=== PATIENT | female | born 1995 | race Two or more races ===

== ENCOUNTER 2018-12-05 23:10 | Inpatient (IN) | payer BC, OTHER ==
[2018-12-05] MEDS ORDERED: Carboprost Tromethamine 250 MCG/1 ML Amp IM PRN (23:33)
[2018-12-05] MEDS ORDERED: Sodium Chloride 0.9% 10 ML Syringe FLUSH PRN (23:33)
[2018-12-05] MEDS ORDERED: Butorphanol 1 MG/ML SDV IVPUSH PRN (23:33)
[2018-12-05] MEDS ORDERED: Nalbuphine 10 MG/1 ML Vial IVPUSH PRN (23:33)
[2018-12-05] MEDS ORDERED: Lidocaine 1% 50 ML MDV INJECT PRN (23:33)
[2018-12-05] MEDS ORDERED: Ondansetron 4 MG/2 ML SDV IV PRN (23:33)
[2018-12-05] MEDS ORDERED: Misoprostol 200 MCG Tab PO PRN (23:33)
[2018-12-05] MEDS ORDERED: Sodium Chloride 0.9% 2.5 ML Syringe FLUSH PRN (23:33)
[2018-12-05] MEDS ORDERED: Tranexamic Acid 1,000 MG in Sodium Chloride 0.9% 100 ML IV PRN (23:33)
[2018-12-05] MEDS ORDERED: Water For Irrigation,Sterile 1,000 ML Container IRR PRN (23:33)
[2018-12-05] MEDS ORDERED: Sodium Chloride 0.9% 10 ML SDV IV PRN (23:33)
[2018-12-05] MEDS ORDERED: Methylergonovine 0.2 MG/1 ML Amp IM PRN (23:33)
[2018-12-05] MEDS ORDERED: Oxytocin/0.9 % Sodium Chloride 30 UNIT/500 ML BAG IV SCH (23:45)
[2018-12-06] MEDS: Lactated Ringers 1,000 ML IV SCH ×2 (03:07→04:05)
[2018-12-06] MEDS ORDERED: fentaNYL 100 MCG/2 ML SDV ONE (03:40)
[2018-12-06] MEDS ORDERED: Ropivacaine 0.2% 2 MG/ML 20 ML SDV ONE (03:40)
[2018-12-06] MEDS ORDERED: Ropivacaine HCl/PF 100 ML ONE (03:41)
[2018-12-06] MEDS ORDERED: Lidocaine HCl/EPINEPHrine 5 ML IJ ONE (03:46)
--- NOTE | 2018-12-06 04:28 | PCM.PREANE ---
Preanesthetic Assessment - Anesthesia/Transfusion/Family Hx Anesthesia History: Prior Anesthesia Without Reaction Family History of Anesthesia Reaction: No Transfusion History: No Prior Transfusion(s) - Review of Systems General: No Symptoms Pulmonary: No Symptoms Cardiovascular: No Symptoms Gastrointestinal: No Symptoms Neurological: No Symptoms Other: Reports: None (Denies any personal or family hx of bleeding or clotting problems) - Physical Assessment Height: 1.7 m Weight: 86.636 kg ASA Class: 2 Mental Status: Alert & Oriented x3 Airway Class: Mallampati = 2 Dentition: Reports: Normal Dentition ROM/Head Extension: Full - Lab Values: Laboratory Last Values WBC 11.62 K/uL (4.0-11.0) H 12/05/18 23:58 RBC 4.18 M/uL (4.30-5.90) L 12/05/18 23:58 Hgb 11.6 g/dL (12.0-16.0) L 12/05/18 23:58 Hct 34.6 % (36.0-46.0) L 12/05/18 23:58 MCV 82.8 fL (80.0-98.0) 12/05/18 23:58 MCH 27.8 pg (27.0-32.0) 12/05/18 23:58 MCHC 33.5 g/dL (31.0-37.0) 12/05/18 23:58 RDW Std Deviation 46.3 fl (28.0-62.0) 12/05/18 23:58 RDW Coeff of Teo 16 % (11.0-15.0) H 12/05/18 23:58 Plt Count 321 K/uL (150-400) 12/05/18 23:58 MPV 9.70 fL (7.40-12.00) 12/05/18 23:58 Nucleated RBC % 0.0 /100WBC 12/05/18 23:58 Nucleated RBCs # 0 K/uL 12/05/18 23:58 Blood Type A POSITIVE 12/05/18 23:58 Antibody Screen NEGATIVE 12/05/18 23:58 - Allergies Allergies/Adverse Reactions: Allergies Allergy/AdvReac Type Severity Reaction Status Date / Time No Known Allergies Allergy Verified 12/20/13 10:04 - Acknowledgements Anesthesia Type Planned: Epidural Pt an Appropriate Candidate for the Planned Anesthesia: Yes Alternatives and Risks of Anesthesia Discussed w Pt/Guardian: Yes Pt/Guardian Understands and Agrees with Anesthesia Plan: Yes PreAnesthesia Questionnaire HEENT History: Reports: None Cardiovascular History: Reports: None Respiratory History: Reports: None Gastrointestinal History: Reports: None Genitourinary History: Reports: None BARN HAND History: Reports: Musculoskeletal History: Reports: None Neurological History: Reports: None Psychiatric History: Reports: None Endocrine/Metabolic History: Reports: None Hematologic History: Reports: None Immunologic History: Reports: None Oncologic (Cancer) History: Reports: None Dermatologic History: Reports: None - Infectious Disease History Infectious Disease History: Reports: None - Past Surgical History Head Surgeries/Procedures: Reports: None Female Surgical History: Reports: LEEP - SUBSTANCE USE Smoking Status *Q: Never Smoker Second Hand Smoke Exposure: No Recreational Drug Use History: No - CURRENT (IN HOUSE) MEDS Current Meds: Current Medications Butorphanol Tartrate (Stadol) 1 mg IVPUSH Q1H PRN PRN Reason: Pain Carboprost Tromethamine (Hemabate Ds) 250 mcg IM ASDIRECTED PRN PRN Reason: Post Hemorrhage Lactated Ringer's (Ringers, Lactated) 1,000 mls @ 150 mls/hr IV ASDIRECTED SATISH Last Admin: 12/06/18 04:05 Dose: 999 mls/hr Oxytocin/Sodium Chloride (Oxytocin 30 Unit/500 Ml-Ns) 30 unit in 500 mls @ 999 mls/hr IV TITRATE SATISH Tranexamic Acid 1,000 mg/ (Sodium Chloride) 110 mls @ 660 mls/hr IV ONETIME PRN PRN Reason: Bleeding Lidocaine HCl (Xylocaine 1%) 50 ml INJECT ONETIME PRN PRN Reason: Laceration repair Methylergonovine Maleate (Methergine) 0.2 mg IM ASDIRECTED PRN PRN Reason: Post Hemorrhage Misoprostol (Cytotec) 200 mcg PO ONETIME PRN PRN Reason: Post Hemorrhage Nalbuphine HCl (Nubain) 10 mg IVPUSH Q1H PRN PRN Reason: Pain (severe 7-10) Ondansetron HCl (Zofran) 4 mg IV Q6H PRN PRN Reason: Nausea/Vomiting Sodium Chloride (Saline Flush) 10 ml FLUSH ASDIRECTED PRN PRN Reason: Keep Vein Open Sodium Chloride (Saline Flush) 2.5 ml FLUSH ASDIRECTED PRN PRN Reason: Keep Vein Open Sodium Chloride (Normal Saline) 10 ml IV ASDIRECTED PRN PRN Reason: IV Use Sterile Water (Sterile Water For Irrigation) 1,000 ml IRR ASDIRECTED PRN PRN Reason: delivery Discontinued Medications Fentanyl (Sublimaze) Confirm Administered Dose 300 mcg .ROUTE .STK-MED ONE Stop: 12/06/18 03:41 Ropivacaine (Naropin 0.2%) Confirm Administered Dose 100 mls @ as directed .ROUTE .STK-MED ONE Stop: 12/06/18 03:42 Lidocaine/Epinephrine (Lidocaine 1.5%-Epi 1:200,000) Confirm Administered Dose 5 ml IJ .STK-MED ONE Stop: 12/06/18 03:47 Ropivacaine (Naropin 0.2%) Confirm Administered Dose 20 ml .ROUTE .STK-MED ONE Stop: 12/06/18 03:41
[2018-12-06] MEDS ORDERED: Terbutaline 1 MG/ML SDV SUBCUT PRN (07:21)
[2018-12-06] MEDS ORDERED: Oxytocin/0.9 % Sodium Chloride 30 UNIT/500 ML BAG IV SCH (07:30)
[2018-12-06] MEDS ORDERED: Ibuprofen 400 MG Tab PO PRN (13:16)
[2018-12-06] MEDS ORDERED: oxyCODONE 5 MG Tab PO PRN (13:16)
[2018-12-06] MEDS ORDERED: Witch Hazel Medicated Pads 40/Jar TOP PRN (13:16)
[2018-12-06] MEDS ORDERED: Acetaminophen 500 MG Tab PO PRN ×2 (13:16)
[2018-12-06] MEDS ORDERED: Docusate Sodium 100 MG Cap PO PRN (13:16)
[2018-12-06] MEDS ORDERED: Lanolin 100% Cream 7 GM Tube TOP PRN (13:16)
[2018-12-06] MEDS ORDERED: Bisacodyl 10 MG Supp RECTAL PRN (13:16)
[2018-12-06] MEDS ORDERED: Benzocaine/Menthol 20%-0.5% Spray 78 GM Cannister TOP PRN (13:16)
--- NOTE | 2018-12-06 13:23 | PCM.OPNOTE ---
- General Post-Op/Procedure Note Date of Surgery/Procedure: 12/06/18 Operative Procedure(s): /2nd MLL repaired Findings: Vaible Male APGARs 9, 9 weight pending. Spontaneous delivery intact placenta with 3V cord Pre Op Diagnosis: 40/1 week IUP. Labor Post-Op Diagnosis: Same Anesthesia Technique: Epidural Primary Surgeon: Naya Reveles EBL in mLs: 350 Complications: none known Condition: Good Free Text/Narrative:: Dictation [id number]
--- NOTE | 2018-12-06 14:07 | OR ---
SURGEON: Naya Reveles M.D. DATE OF PROCEDURE: 12/06/2018 PREOPERATIVE DIAGNOSES: 1. A 40-1/7 weeks' intrauterine . 2. Labor. POSTOPERATIVE DIAGNOSES: 1. A 40-1/7 weeks' intrauterine . 2. Labor. PROCEDURE: Spontaneous vaginal delivery, second-degree midline laceration repaired. ANESTHESIA: Epidural. ESTIMATED BLOOD LOSS: 350 mL. COMPLICATIONS: None known. FINDINGS: Viable male. scores 9 at 1 minute and 9 at 5 minutes. Weight is pending. Spontaneous delivery, intact placenta, 3-vessel cord. DISPOSITION: to nursery, mom in LDRP. PROCEDURE DETAILS: Khadijah is a 23-year-old, G1, P0, at 40-1/7 weeks' gestational age, who was admitted on the evening of 12/05/2018 with spontaneous rupture of membranes shortly after 10 p.m. followed by contractions. She is group B strep negative. She was admitted, routine labs drawn, IV hydration was initiated. Continued to labor throughout the furniture and bedding inspector hours and was found to be 5 cm, progressing to 7 cm with minimal change thereafter and contractions spaced out after the patient became comfortable with an epidural. Therefore, she underwent Pitocin augmentation, responded nicely to this. Was still found to be 7 cm shortly before 9 a.m. and then shortly after 10 a.m. was found to be complete, 100% effaced, +1 station with feeling the urge to push. Therefore, she began pushing efforts, pushed adequately for approximately 2.5 hours. At that time, she was found to be a +3 station. I was called for delivery. heart tones remained category 1. The patient was placed in modified dorsal lithotomy position, was prepped and draped in usual aseptic manner. Continued with the pushing efforts, pushed adequately to a +5 station. Knowing that it was a large baby, did ask for extra assistance from nursing staff. The head of the bed was flattened. The patient continued with pushing efforts, was placed in Marcus positioning. Was able to deliver 's head atraumatically followed by anterior shoulder, posterior shoulder, and remaining body. The 's oropharynx and nares bulb suctioned. Cord was clamped x2 and cut after a delay. Cord arterial, cord venous, cord blood sampling obtained. Light pressure was applied while the placenta was delivered spontaneously intact. Vigorous fundal uterine massage was then applied while 30 units of Pitocin was delivered in 500 mL of IV fluid. Upon inspection of cervix, vaginal sidewalls, and perineum, there was found to be a fairly deep second-degree midline laceration. This was repaired in 2 layers, first a deep layer reapproximating the deeper subcutaneous tissue with 3 [id number] sutures followed by remainder of the repair in usual second-degree fashion using 3-0 Vicryl. There was some superficial bilateral labial laceration also present. These were reapproximated using 3-0 Vicryl in continuous running fashion on either side. The patient tolerated the procedure well. Hemostasis remained evident. Sponge count, needle count, and instrument count were correct. The patient remained in LDRP, to nursery. RAVIN / MURALI /[id number]
[2018-12-06] MEDS: Ibuprofen 800 MG Tab PO PRN (15:55)
[2018-12-07] MEDS: Ibuprofen 800 MG Tab PO PRN ×2 (05:36→15:33)
--- NOTE | 2018-12-07 08:27 | PCM.PNPP ---
- General Info Date of Service: 12/07/18 Functional Status: Reports: Pain Controlled, Tolerating Diet, Ambulating, Urinating - Review of Systems General: Denies: Fever, Weakness Pulmonary: Denies: Shortness of Breath Cardiovascular: Denies: Chest Pain, Palpitations, Lightheadedness Gastrointestinal: Denies: Abdominal Pain, Nausea, Vomiting Genitourinary: Denies: Flank Pain Musculoskeletal: Reports: No Symptoms Neurological: Reports: No Symptoms Psychiatric: Reports: No Symptoms - General Info Date of Service: 12/07/18 - Patient Data Vital Signs - Most Recent: Last Vital Signs Temp 36.3 C 12/07/18 07:15 Pulse 85 12/07/18 07:15 Resp 16 12/07/18 07:15 BP 127/61 12/07/18 07:15 Pulse Ox 96 12/07/18 07:15 Weight - Most Recent: 86.636 kg Lab Results - Last 24 Hours: Laboratory Results - last 24 hr 12/06/18 12/07/18 Range/Units 12:50 05:29 Hgb 10.4 L (12.0-16.0) g/dL Hct 31.6 L (36.0-46.0) % Cord ABG pH 7.322 (7.18-7.38) Cord ABG Base Excess -6 (-10--2) Cord VBG pH 7.322 (7.25-7.45) Cord VBG Base Excess -6 (-10--2) Med Orders - Current: Current Medications Acetaminophen (Tylenol Extra Strength) 500 mg PO Q4H PRN PRN Reason: Pain Acetaminophen (Tylenol Extra Strength) 1,000 mg PO Q4H PRN PRN Reason: Pain Last Admin: 12/06/18 14:16 Dose: 1,000 mg Benzocaine/Menthol (Dermoplast Pain Relief 20%-0.5% Kersey) 78 gm TOP ASDIRECTED PRN PRN Reason: Perineal Comfort Measure Last Admin: 12/06/18 14:17 Dose: 78 gm Bisacodyl (Dulcolax) 10 mg RECTAL ONETIME PRN PRN Reason: Constipation Carboprost Tromethamine (Hemabate Ds) 250 mcg IM ASDIRECTED PRN PRN Reason: Post Hemorrhage Docusate Sodium (Colace) 100 mg PO BID PRN PRN Reason: Constipation Last Admin: 12/06/18 14:17 Dose: 100 mg Emollient Ointment (Lansinoh Hpa) 0 gm TOP ASDIRECTED PRN PRN Reason: Sore Nipples Last Admin: 12/06/18 14:17 Dose: 7 gm Lactated Ringer's (Ringers, Lactated) 1,000 mls @ 150 mls/hr IV ASDIRECTED SATISH Last Admin: 12/06/18 04:05 Dose: 999 mls/hr Oxytocin/Sodium Chloride (Oxytocin 30 Unit/500 Ml-Ns) 30 unit in 500 mls @ 999 mls/hr IV TITRATE SATISH Tranexamic Acid 1,000 mg/ (Sodium Chloride) 110 mls @ 660 mls/hr IV ONETIME PRN PRN Reason: Bleeding Oxytocin/Sodium Chloride (Oxytocin 30 Unit/500 Ml-Ns) 30 unit in 500 mls @ 2 mls/hr IV TITRATE SATISH; Protocol Last Titration: 12/06/18 12:50 Dose: 999 munits/min, 999 mls/hr Ibuprofen (Motrin) 400 mg PO Q4H PRN PRN Reason: Pain Ibuprofen (Motrin) 800 mg PO Q6H PRN PRN Reason: Pain Last Admin: 12/07/18 05:36 Dose: 800 mg Methylergonovine Maleate (Methergine) 0.2 mg IM ASDIRECTED PRN PRN Reason: Post Hemorrhage Ondansetron HCl (Zofran) 4 mg IV Q6H PRN PRN Reason: Nausea/Vomiting Oxycodone HCl (Oxycodone) 5 mg PO Q2H PRN PRN Reason: Pain Sodium Chloride (Saline Flush) 10 ml FLUSH ASDIRECTED PRN PRN Reason: Keep Vein Open Sodium Chloride (Saline Flush) 2.5 ml FLUSH ASDIRECTED PRN PRN Reason: Keep Vein Open Sodium Chloride (Normal Saline) 10 ml IV ASDIRECTED PRN PRN Reason: IV Use Sterile Water (Sterile Water For Irrigation) 1,000 ml IRR ASDIRECTED PRN PRN Reason: delivery Last Admin: 12/06/18 12:35 Dose: 1,000 ml Witch Suha (Tucks) 1 pad TOP ASDIRECTED PRN PRN Reason: comfort care Last Admin: 12/06/18 14:18 Dose: 1 pad Discontinued Medications Butorphanol Tartrate (Stadol) 1 mg IVPUSH Q1H PRN PRN Reason: Pain Fentanyl (Sublimaze) Confirm Administered Dose 300 mcg .ROUTE .CoPatient-Watch Over Me ONE Stop: 12/06/18 03:41 Last Admin: 12/06/18 17:37 Dose: Not Given Ropivacaine (Naropin 0.2%) Confirm Administered Dose 100 mls @ as directed .ROUTE .[employer] ONE Stop: 12/06/18 03:42 Last Admin: 12/06/18 17:37 Dose: Not Given Lidocaine HCl (Xylocaine 1%) 50 ml INJECT ONETIME PRN PRN Reason: Laceration repair Lidocaine/Epinephrine (Lidocaine 1.5%-Epi 1:200,000) Confirm Administered Dose 5 ml IJ .CoPatient-Watch Over Me ONE Stop: 12/06/18 03:47 Last Admin: 12/06/18 17:37 Dose: Not Given Misoprostol (Cytotec) 200 mcg PO ONETIME PRN PRN Reason: Post Hemorrhage Nalbuphine HCl (Nubain) 10 mg IVPUSH Q1H PRN PRN Reason: Pain (severe 7-10) Ropivacaine (Naropin 0.2%) Confirm Administered Dose 20 ml .ROUTE .[employer] ONE Stop: 12/06/18 03:41 Last Admin: 12/06/18 17:37 Dose: Not Given Terbutaline Sulfate (Brethine) 0.25 mg SUBCUT ASDIRECTED PRN PRN Reason: Tacysystole - Infant Interaction Support Person: , Mother - Recovery Exam Fundal Tone: Firm Fundal Level: 1 Fingerbreadths Above Umbilicus Fundal Placement: Midline Lochia Amount: Scant Lochia Color: Rubra/Red Perineum Description: Other (see below) Other Perinuem Description: 2nd degree laceration Episiotomy/Laceration: Approximated Bladder Status: Voiding Urinary Elimination: Voided - Exam General: Alert, Oriented Lungs: Normal Respiratory Effort Cardiovascular: Regular Rate, Regular Rhythm GI/Abdominal Exam: Normal Bowel Sounds, Soft Extremities: Pedal Edema (trace). No: Barbara's Sign Skin: Warm, Dry, Intact Neurological: No New Focal Deficit Psy/Mental Status: Alert, Normal Affect, Normal Mood - Problem List & Annotations (1) Vaginal delivery SNOMED Code(s): 590792171 Code(s): O80 - ENCOUNTER FOR FULL-TERM UNCOMPLICATED DELIVERY Status: Acute Current Visit: Yes - Problem List Review Problem List Initiated/Reviewed/Updated: Yes - My Orders Last 24 Hours: My Active Orders 12/06/18 13:16 Patient Status [ADT] Routine May Shower [RC] ASDIRECTED Up ad Eulalia [RC] ASDIRECTED Vital Signs [RC] PER UNIT ROUTINE Acetaminophen [Tylenol Extra Strength] 1,000 mg PO Q4H PRN Acetaminophen [Tylenol Extra Strength] 500 mg PO Q4H PRN Benzocaine/Menthol [Dermoplast Pain Relief 20%-0.5% Kersey] 78 gm TOP ASDIRECTED PRN Bisacodyl [Dulcolax] 10 mg RECTAL ONETIME PRN Docusate Sodium [Colace] 100 mg PO BID PRN Ibuprofen [Motrin] 400 mg PO Q4H PRN Ibuprofen [Motrin] 800 mg PO Q6H PRN Lanolin [Lansinoh HPA] See Dose Instructions TOP ASDIRECTED PRN Witch Suha [Tucks] 1 pad TOP ASDIRECTED PRN oxyCODONE 5 mg PO Q2H PRN Assess Lochia [WOMSER] Per Unit Routine Assess Uterine Involution [WOMSER] Per Unit Routine Ice Therapy [OM.PC] Per Unit Routine Perineal Care [OM.PC] Per Unit Routine Peripheral IV Discontinue [OM.PC] Routine Sitz Bath [OM.PC] Per Unit Routine 12/06/18 Lunch Regular Diet [DIET] 12/07/18 08:24 Ready for Discharge [RC] PER UNIT ROUTINE - Assessment Assessment:: PPD 1 status post /2nd MLL repaired - Plan Plan:: Patient doing well overall. going well. She would like to go home later today. Discharge instructions reviewed. Infection and bleeding warnings reviewed. Follow up at [facility] 6 weeks.
--- NOTE | 2018-12-07 10:22 | PCM48HPAN ---
Post Anesthesia Note - EVALUATION WITHIN 48HRS OF ANESTHETIC Vital Signs in Normal Range: Yes Patient Participated in Evaluation: Yes Respiratory Function Stable: Yes Airway Patent: Yes Cardiovascular Function Stable: Yes Hydration Status Stable: Yes Pain Control Satisfactory: Yes Nausea and Vomiting Control Satisfactory: Yes Mental Status Recovered: Yes Resp Rate: 16
== END 2018-12-07 18:00 | disposition home or self-care (01) | DRG 560 ==
LOC: MW.OBCHECK 23:10 → MW.OB 23:30 → MW.OBCHECK 23:34 → MW.OB 23:34 → OBSVTOIN 12-06 12:50 → MW.OB 12-06 17:41
PROVIDERS: ADMIT Obstetrics & Gynecology; ATTEND Obstetrics & Gynecology
PROC: 6A550ZT Pheresis of Cord Blood Stem Cells, Single (ICD-10-PCS; principal; 2018-12-06)
PROC: 10E0XZZ Delivery of Products of Conception, External Approach (ICD-10-PCS; principal; 2018-12-06)
PROC: 0KQM0ZZ Repair Perineum Muscle, Open Approach (ICD-10-PCS; principal; 2018-12-06)
PROC: 00HU33Z Insertion of Infusion Device into Spinal Canal, Percutaneous Approach (ICD-10-PCS; 2018-12-06)
PROC: 3E0R3BZ Introduction of Anesthetic Agent into Spinal Canal, Percutaneous Approach (ICD-10-PCS; 2018-12-06)
DX: O48.0 Post-term pregnancy (principal); O70.1 Second degree perineal laceration during delivery; Z37.0 Single live birth; Z3A.40 40 weeks gestation of pregnancy; O36.63X0 Maternal care for excessive fetal growth, third trimester, not applicable or unspecified
CPT/HCPCS: 36415; 51702; 59025; 59409; 82803; 85014; 85018; 85027; 86850; 86900; 86901; A9270-GY; J2590; J7120

== ENCOUNTER 2021-04-17 19:54 | Inpatient (IN) | payer BC, OTHER ==
[2021-04-17] MEDS ORDERED: Sodium Chloride 0.9% 10 ML Syringe FLUSH PRN (20:09)
[2021-04-17] MEDS ORDERED: Misoprostol 200 MCG Tab PO PRN (20:09)
[2021-04-17] MEDS ORDERED: Tranexamic Acid 1,000 MG in Sodium Chloride 0.9% 100 ML IV PRN (20:09)
[2021-04-17] MEDS ORDERED: Sodium Chloride 0.9% 2.5 ML Syringe FLUSH PRN (20:09)
[2021-04-17] MEDS ORDERED: Carboprost Tromethamine 250 MCG/1 ML Amp IM PRN (20:09)
[2021-04-17] MEDS ORDERED: Ondansetron 4 MG/2 ML SDV IVPUSH PRN (20:09)
[2021-04-17] MEDS ORDERED: Lidocaine 1% 50 ML MDV INJECT PRN (20:09)
[2021-04-17] MEDS ORDERED: Nalbuphine 10 MG/1 ML Vial IVPUSH PRN (20:09)
[2021-04-17] MEDS ORDERED: Sodium Chloride 0.9% 10 ML SDV IV PRN (20:09)
[2021-04-17] MEDS ORDERED: Water For Irrigation,Sterile 1,000 ML Container IRR PRN (20:09)
[2021-04-17] MEDS ORDERED: Methylergonovine 0.2 MG/1 ML Amp IM PRN (20:09)
[2021-04-17] MEDS ORDERED: Butorphanol 1 MG/ML SDV IVPUSH PRN (20:09)
[2021-04-17] MEDS ORDERED: Terbutaline 1 MG/ML SDV SUBCUT PRN (20:12)
[2021-04-17] MEDS ORDERED: Misoprostol 25 MCG (1/4 of 100 MCG) Tab VAG PRN (20:12)
[2021-04-17] MEDS ORDERED: Oxytocin/0.9 % Sodium Chloride 30 UNIT/500 ML BAG IV SCH ×2 (20:15)
[2021-04-17] MEDS: Misoprostol 25 MCG (1/4 of 100 MCG) Tab VAG PRN (21:15)
[2021-04-18] MEDS: Misoprostol 25 MCG (1/4 of 100 MCG) Tab VAG PRN ×2 (01:30→05:30)
[2021-04-18] MEDS: Lactated Ringers 1,000 ML IV SCH ×2 (09:30→11:52)
[2021-04-18] MEDS ORDERED: Ropivacaine HCl/PF 200 ML ONE (10:08)
--- NOTE | 2021-04-18 10:44 | PCM.PREANE ---
Preanesthetic Assessment - Anesthesia/Transfusion/Family Hx Anesthesia History: Prior Anesthesia Without Reaction Family History of Anesthesia Reaction: No Transfusion History: No Prior Transfusion(s) - Review of Systems General: No Symptoms Pulmonary: No Symptoms Cardiovascular: No Symptoms Gastrointestinal: No Symptoms Neurological: No Symptoms Other: Reports: None - Physical Assessment Height: 5 ft 6 in Weight: 216 lb ASA Class: 2 Mental Status: Alert & Oriented x3 Airway Class: Mallampati = 3 Dentition: Reports: Normal Dentition ROM/Head Extension: Full Lungs: Clear to Auscultation, Normal Respiratory Effort Cardiovascular: Regular Rate, Regular Rhythm - Lab Values: Laboratory Last Values WBC 9.50 K/uL (4.0-11.0) 04/17/21 20:40 RBC 4.25 M/uL (4.30-5.90) L 04/17/21 20:40 Hgb 12.1 g/dL (12.0-16.0) 04/17/21 20:40 Hct 35.4 % (36.0-46.0) L 04/17/21 20:40 MCV 83.3 fL (80.0-98.0) 04/17/21 20:40 MCH 28.5 pg (27.0-32.0) 04/17/21 20:40 MCHC 34.2 g/dL (31.0-37.0) 04/17/21 20:40 RDW Std Deviation 49.9 fl (28.0-62.0) 04/17/21 20:40 RDW Coeff of Teo 17 % (11.0-15.0) H 04/17/21 20:40 Plt Count 270 K/uL (150-400) 04/17/21 20:40 MPV 10.90 fL (7.40-12.00) 04/17/21 20:40 Nucleated RBC % 0.0 /100WBC 04/17/21 20:40 Nucleated RBCs # 0 K/uL 04/17/21 20:40 Blood Type A POSITIVE 04/17/21 20:40 Antibody Screen NEGATIVE 04/17/21 20:40 - Allergies Allergies/Adverse Reactions: Allergies Allergy/AdvReac Type Severity Reaction Status Date / Time No Known Allergies Allergy Verified 04/17/21 20:09 - Blood Blood Available: Yes Product(s) Available: PRBC, FFP, Platelets - Anesthesia Plan Pre-Op Medication Ordered: None - Acknowledgements Anesthesia Type Planned: Epidural Pt an Appropriate Candidate for the Planned Anesthesia: Yes Alternatives and Risks of Anesthesia Discussed w Pt/Guardian: Yes Pt/Guardian Understands and Agrees with Anesthesia Plan: Yes PreAnesthesia Questionnaire HEENT History: Reports: None Cardiovascular History: Reports: None Respiratory History: Reports: None Gastrointestinal History: Reports: None Genitourinary History: Reports: None SENIOR INFORMATION SYSTEMS ARCHITECT History: Reports: Musculoskeletal History: Reports: None Neurological History: Reports: None Psychiatric History: Reports: None Endocrine/Metabolic History: Reports: None Hematologic History: Reports: None Immunologic History: Reports: None Oncologic (Cancer) History: Reports: None Dermatologic History: Reports: None - Infectious Disease History Infectious Disease History: Reports: None - Past Surgical History Head Surgeries/Procedures: Reports: None Female Surgical History: Reports: LEEP - SUBSTANCE USE Tobacco Use Status *Q: Never Tobacco User Second Hand Smoke Exposure: No Recreational Drug Use History: No - CURRENT (IN HOUSE) MEDS Current Meds: Current Medications Butorphanol Tartrate (Butorphanol 1 Mg/Ml Sdv) 1 mg IVPUSH Q1H PRN PRN Reason: Pain (severe 7-10) Carboprost Tromethamine (Carboprost Tromethamine 250 Mcg/1 Ml Amp) 250 mcg IM ASDIRECTED PRN PRN Reason: Post Hemorrhage Oxytocin/Sodium Chloride (Oxytocin 30 Unit/500 Ml-Ns) 30 unit in 500 mls @ 500 mls/hr IV TITRATE SATISH Tranexamic Acid 1,000 mg/ (Sodium Chloride) 110 mls @ 660 mls/hr IV ONETIME PRN PRN Reason: Bleeding Lactated Ringer's (Ringers, Lactated) 1,000 mls @ 150 mls/hr IV ASDIRECTED SATISH Oxytocin/Sodium Chloride (Oxytocin 30 Unit/500 Ml-Ns) 30 unit in 500 mls @ 2 mls/hr IV TITRATE SATISH; Protocol Lidocaine HCl (Lidocaine 1% 50 Ml Mdv) 50 ml INJECT ONETIME PRN PRN Reason: Laceration repair Methylergonovine Maleate (Methylergonovine 0.2 Mg/1 Ml Amp) 0.2 mg IM ASDI RECTED PRN PRN Reason: Post Hemorrhage Misoprostol (Misoprostol 200 Mcg Tab) 200 mcg PO ONETIME PRN PRN Reason: Post Hemorrhage Misoprostol (Misoprostol 25 Mcg (1/4 Of 100 Mcg) Tab) 25 mcg VAG ONETIME PRN PRN Reason: Cervical Ripening Misoprostol (Misoprostol 25 Mcg (1/4 Of 100 Mcg) Tab) 25 mcg VAG Q4H PRN PRN Reason: Cervical Ripening Last Admin: 04/18/21 05:30 Dose: 25 mcg Documented by: Nalbuphine HCl (Nalbuphine 10 Mg/1 Ml Vial) 10 mg IVPUSH Q1H PRN PRN Reason: Pain (severe 7-10) Ondansetron HCl (Ondansetron 4 Mg/2 Ml Sdv) 4 mg IVPUSH Q4H PRN PRN Reason: Nausea/Vomiting Sodium Chloride (Sodium Chloride 0.9% 10 Ml Syringe) 10 ml FLUSH ASDIRECTED PRN PRN Reason: Keep Vein Open Sodium Chloride (Sodium Chloride 0.9% 2.5 Ml Syringe) 2.5 ml FLUSH ASDIRECTED PRN PRN Reason: Keep Vein Open Sodium Chloride (Sodium Chloride 0.9% 10 Ml Sdv) 10 ml IV ASDIRECTED PRN PRN Reason: IV Use Sterile Water (Water For Irrigation,Sterile 1,000 Ml Container) 1,000 ml IRR ASDIRECTED PRN PRN Reason: delivery Terbutaline Sulfate (Terbutaline 1 Mg/Ml Sdv) 0.25 mg SUBCUT ASDIRECTED PRN PRN Reason: Tacysystole Discontinued Medications Ropivacaine (Naropin 0.2%) Confirm Administered Dose 200 mls @ as directed .ROUTE .[facility] ONE Stop: 04/18/21 10:09 - Pre-Procedure Checklist Attending Provider Aware: Yes Chart Reviewed: Yes Consent Signed: Yes Labs Reviewed: Yes VS/FHR Reviewed: Yes Patient Identification Confirmation Method: Reports: Verbal Patient Pt an Appropriate Candidate for the Planned Anesthesia: Yes Alternatives and Risks of Anesthesia Discussed w Pt/Guardian: Yes - Procedure Procedure Start Date: 04/18/21 Procedure Start Time: 10:[address]: Reports: Blood Pressure, Heart Rate, SPO2 Functional IV: Yes Safety Measures: Reports: Patient Identified, Procedure Verified, Site Verified, Procedure Time Out Patient Position: Reports: Sitting Prep: Reports: Betadine x3, Sterile Drape Local Anesthetic: Reports: Intradermal Wheal w Lidocaine 1% Regional Placement Level: Reports: L3-4 Needle: Reports: 17 g Touhy Approach: Reports: Midline Technique: Reports: LATRELL Plastic Syringe Parasthesia: Reports: None Fluid Obtained: Reports: None Test Dose Time: 10:15 Test Dose Medication: Reports: Lidocaine 1.5% w Epinephrine 1:200,000 Test Dose Response: Reports: Negative Loading Dose Time: 10:14 Loading Dose Medication: bupivicaine 0.25% 10cc Loading Dose Patient Position: sitting Continuous Infusion Start Time: 10:20 Continuous Infusion Medication: ropivicaine 0.2% Continuous Infusion Rate: 16 Continuous Infusion PCS Bolus Option: 4 Continuous Infusion Lockout Dose (cc/hr): 32 Patient Position Post Placement: Reports: Supline/RONNI VS and FHR Monitored in Unit Post Placement: Yes Procedure End Date: 04/18/21 Procedure End Time: 11:05
--- NOTE | 2021-04-18 10:44 | PCM.POSTAN ---
POST ANESTHESIA ASSESSMENT - MENTAL STATUS Mental Status: Alert, Oriented - RESPIRATORY Respiratory Status: Respiratory Rate WNL, Airway Patent, O2 Saturation Stable - CARDIOVASCULAR CV Status: Pulse Rate WNL, Blood Pressure Stable - GASTROINTESTINAL GI Status: No Symptoms - POST OP HYDRATION Hydration Status: Adequate & Stable
[2021-04-18] MEDS ORDERED: Acetaminophen 500 MG Tab PO PRN (14:19)
[2021-04-18] MEDS ORDERED: Bisacodyl 10 MG Supp RECTAL PRN (14:19)
[2021-04-18] MEDS ORDERED: Lanolin 100% Cream 7 GM Tube TOP PRN (14:19)
[2021-04-18] MEDS ORDERED: oxyCODONE 5 MG Tab PO PRN (14:19)
[2021-04-18] MEDS ORDERED: Ibuprofen 400 MG Tab PO PRN (14:19)
[2021-04-18] MEDS ORDERED: Witch Hazel Medicated Pads 40/Jar TOP PRN (14:19)
[2021-04-18] MEDS ORDERED: Benzocaine/Menthol 20%-0.5% Spray 78 GM Cannister TOP PRN (14:19)
--- NOTE | 2021-04-18 14:33 | PCM.OPNOTE ---
- General Post-Op/Procedure Note Date of Surgery/Procedure: 04/18/21 Operative Procedure(s): /1st MLL repaired Findings: Viable male APGARs 8,9 weight pending. Spontaneous delivery intact placenta with 3V cord Pre Op Diagnosis: 39 week IUP. Elective IOL Post-Op Diagnosis: Same Anesthesia Technique: Epidural Primary Surgeon: Naya Reveles EBL in mLs: 300 Complications: none known Condition: Stable Free Text/Narrative:: Intake & Output 04/17/21 04/18/21 04/18/21 22:59 06:59 14:59 Intake Total 1000 Balance 1000
[2021-04-18] MEDS: Ibuprofen 800 MG Tab PO PRN (18:15)
[2021-04-18] MEDS: Docusate Sodium 100 MG Cap PO PRN (20:30)
[2021-04-18] MEDS: Acetaminophen 500 MG Tab PO PRN (20:31)
--- NOTE | 2021-04-18 21:04 | OR ---
SURGEON: Naya Reveles M.D. DATE OF PROCEDURE: 04/18/2021 PREOPERATIVE DIAGNOSES: 1. 39-week intrauterine . 2. Elective induction of labor. POSTOPERATIVE DIAGNOSES: 1. 39-week intrauterine . 2. Elective induction of labor. PROCEDURE: Spontaneous vaginal delivery, first-degree midline laceration repaired. PRIMARY SURGEON: Naya Reveles M.D. ANESTHESIA: Epidural. ESTIMATED BLOOD LOSS: 300 mL. COMPLICATIONS: None known. FINDINGS: Viable male, scores 8 at one minute and 9 at five minutes. Weight is pending. Spontaneous delivery, intact placenta, 3-vessel cord. DISPOSITION: to nursery, mom in LDRP. PROCEDURE DETAILS: Khadijah is a 25-year-old, G2, P1, at 39 weeks' gestational age, presents today for scheduled induction of labor. Due to term gestation, elective request per the patient. The patient was admitted on the evening of 04/17/2021 for cervical ripening. On initial examination, her cervix was found to be 0.5 cm, 60% effaced, -3 station. Category 1 heart tones. She underwent 3 doses of Cytotec ripening, responded nicely to this. By the following morning, was found to be approximately 2 to 3 cm dilated and then progressed to 5 cm dilatation, underwent amniotomy, clear fluid was returned, and shortly thereafter underwent epidural, became more comfortable and continued to progress to complete, 100% effaced, +2 station, began pushing efforts, pushed for approximately 45 minutes. I was called for delivery. Upon my arrival, the patient was placed in modified dorsal lithotomy position, was prepped and draped in the usual aseptic manner. She continued with pushing efforts, was able to push to a +4 station with delivery of infant's head followed by delivery of anterior shoulder, posterior shoulder, and remainder of the body without difficulty. The 's oropharynx and nares bulb suctioned. After delay, the cord was clamped x2 and cut. Infant had been handed to his mother with attending nursing staff at her side. After delay, the cord was clamped x2 and cut. Cord arterial, cord venous, cord blood sampling obtained. Light pressure was applied while the placenta was delivered spontaneously intact. Vigorous fundal uterine massage was then applied while 30 units of Pitocin was delivered in 500 mL of IV fluid. Upon inspection of cervix, vaginal sidewall, and perineum, there was found to be a first-degree midline laceration, repaired using 3-0 Vicryl in usual fashion. Hemostasis remains evident. Uterus is firm. Sponge, instrument, and needle count was correct. The patient remained in LDRP, infant to nursery. RAVIN / MURALI /[id number]
[2021-04-19] MEDS: Ibuprofen 800 MG Tab PO PRN ×3 (02:10→17:22)
[2021-04-19] MEDS: Acetaminophen 500 MG Tab PO PRN ×3 (05:22→14:19)
--- NOTE | 2021-04-19 11:34 | PCM.PNPP ---
- General Info Date of Service: 04/19/21 Functional Status: Reports: Pain Controlled, Tolerating Diet, Ambulating, Urinating - Review of Systems General: Reports: Fatigue. Denies: Fever, Weakness Pulmonary: Denies: Shortness of Breath Cardiovascular: Denies: Chest Pain, Palpitations, Lightheadedness Gastrointestinal: Denies: Abdominal Pain, Nausea, Vomiting Genitourinary: Denies: Flank Pain Musculoskeletal: Reports: No Symptoms Skin: Reports: No Symptoms Neurological: Reports: No Symptoms Psychiatric: Reports: No Symptoms - General Info Date of Service: 04/19/21 - Patient Data Vital Signs - Most Recent: Last Vital Signs Temp 36.5 C 04/19/21 07:00 Pulse 80 04/19/21 07:00 Resp 16 04/19/21 07:00 BP 120/80 04/19/21 07:00 Pulse Ox 96 04/19/21 07:00 Weight - Most Recent: 97.976 kg I&O - Last 24 Hours: Intake & Output 04/18/21 04/19/21 04/19/21 22:59 06:59 14:59 Intake Total 800 Balance 800 Lab Results - Last 24 Hours: Laboratory Results - last 24 hr 04/18/21 04/19/21 Range/Units 14:03 05:30 Hgb 11.4 L (12.0-16.0) g/dL Hct 34.0 L (36.0-46.0) % Cord ABG pH 7.18 (7.18-7.38) Cord ABG Base Excess -7 (-10--2) Cord VBG pH 7.28 (7.25-7.45) Cord VBG Base Excess -5 (-10--2) Med Orders - Current: Current Medications Acetaminophen (Acetaminophen 500 Mg Tab) 500 mg PO Q4H PRN PRN Reason: Pain (mild 1-3) Acetaminophen (Acetaminophen 500 Mg Tab) 1,000 mg PO Q4H PRN PRN Reason: Pain (mild 1-3) Last Admin: 04/19/21 09:37 Dose: 1,000 mg Documented by: Benzocaine/Menthol (Benzocaine/Menthol 20%-0.5% [place] 78 Gm Cannister) 78 gm TOP ASDIRECTED PRN PRN Reason: Perineal Comfort Measure Last Admin: 04/18/21 16:09 Dose: 1 bottle Documented by: Bisacodyl (Bisacodyl 10 Mg Supp) 10 mg RECTAL ONETIME PRN PRN Reason: Constipation Carboprost Tromethamine (Carboprost Tromethamine 250 Mcg/1 Ml Amp) 250 mcg IM ASDIRECTED PRN PRN Reason: Post Hemorrhage Docusate Sodium (Docusate Sodium 100 Mg Cap) 100 mg PO Q12H PRN PRN Reason: Constipation Last Admin: 04/18/21 20:30 Dose: 100 mg Documented by: Emollient Ointment (Lanolin 100% Cream 7 Gm Tube) 0 gm TOP ASDIRECTED PRN PRN Reason: Sore Nipples Last Admin: 04/18/21 16:08 Dose: 1 applic Documented by: Oxytocin/Sodium Chloride (Oxytocin 30 Unit/500 Ml-Ns) 30 unit in 500 mls @ 500 mls/hr IV TITRATE [facility] Tranexamic Acid 1,000 mg/ (Sodium Chloride) 110 mls @ 660 mls/hr IV ONETIME PRN PRN Reason: Bleeding Lactated Ringer's (Ringers, Lactated) 1,000 mls @ 150 mls/hr IV ASDIRECTED SATISH Last Admin: 04/18/21 11:52 Dose: 150 mls/hr Documented by: Ibuprofen (Ibuprofen 400 Mg Tab) 400 mg PO Q4H PRN PRN Reason: Pain (mild 1-3) Ibuprofen (Ibuprofen 800 Mg Tab) 800 mg PO Q6H PRN PRN Reason: Cramping Last Admin: 04/19/21 09:36 Dose: 800 mg Documented by: Methylergonovine Maleate (Methylergonovine 0.2 Mg/1 Ml Amp) 0.2 mg IM ASDIRECTED PRN PRN Reason: Post Hemorrhage Nalbuphine HCl (Nalbuphine 10 Mg/1 Ml Vial) 10 mg IVPUSH Q1H PRN PRN Reason: Pain (severe 7-10) Ondansetron HCl (Ondansetron 4 Mg/2 Ml Sdv) 4 mg IVPUSH Q4H PRN PRN Reason: Nausea/Vomiting Oxycodone HCl (Oxycodone 5 Mg Tab) 5 mg PO Q2H PRN PRN Reason: Pain (severe 7-10) Sodium Chloride (Sodium Chloride 0.9% 10 Ml Syringe) 10 ml FLUSH ASDIRECTED PRN PRN Reason: Keep Vein Open Sodium Chloride (Sodium Chloride 0.9% 2.5 Ml Syringe) 2.5 ml FLUSH ASDIRECTED PRN PRN Reason: Keep Vein Open Sodium Chloride (Sodium Chloride 0.9% 10 Ml Sdv) 10 ml IV ASDIRECTED PRN PRN Reason: IV Use Sterile Water (Water For Irrigation,Sterile 1,000 Ml Container) 1,000 ml IRR ASDIRECTED PRN PRN Reason: delivery Witch Suha (Witch Suha Medicated Pads 40/Jar) 1 pad TOP ASDIRECTED PRN PRN Reason: comfort care Last Admin: 04/18/21 16:08 Dose: 1 tub Documented by: Discontinued Medications Butorphanol Tartrate (Butorphanol 1 Mg/Ml Sdv) 1 mg IVPUSH Q1H PRN PRN Reason: Pain (severe 7-10) Oxytocin/Sodium Chloride (Oxytocin 30 Unit/500 Ml-Ns) 30 unit in 500 mls @ 2 mls/hr IV TITRATE SAT[place]; Protocol Last Titration: 04/18/21 14:03 Dose: 999 munits/min, 999 mls/hr Documented by: Ropivacaine (Naropin 0.2%) Confirm Administered Dose 200 mls @ as directed .ROUTE .[facility] Stop: 04/18/21 10:09 Lidocaine HCl (Lidocaine 1% 50 Ml Mdv) 50 ml INJECT ONETIME PRN PRN Reason: Laceration repair Misoprostol (Misoprostol 200 Mcg Tab) 200 mcg PO ONETIME PRN PRN Reason: Post Hemorrhage Misoprostol (Misoprostol 25 Mcg (1/4 Of 100 Mcg) Tab) 25 mcg VAG ONETIME PRN PRN Reason: Cervical Ripening Misoprostol (Misoprostol 25 Mcg (1/4 Of 100 Mcg) Tab) 25 mcg VAG Q4H PRN PRN Reason: Cervical Ripening Last Admin: 04/18/21 05:30 Dose: 25 mcg Documented by: Terbutaline Sulfate (Terbutaline 1 Mg/Ml Sdv) 0.25 mg SUBCUT ASDIRECTED PRN PRN Reason: Tacysystole - Interaction Support Person: , Mother - Recovery Exam Fundal Tone: Firm Fundal Level: 1 Fingerbreadths Below Umbilicus Fundal Placement: Midline Lochia Amount: Scant Lochia Color: Rubra/Red Perineum Description: Intact, Minimal Bruising/Swelling, Other (see below) Other Perinuem Description: 1st degree laceration with repair Episiotomy/Laceration: Approximated Bladder Status: Voiding Urinary Elimination: Voided - Exam General: Alert, Oriented Lungs: Normal Respiratory Effort Cardiovascular: Regular Rate, Regular Rhythm GI/Abdominal Exam: Normal Bowel Sounds, Soft Extremities: Pedal Edema (trace). No: Barbara's Sign Skin: Warm, Dry, Intact Neurological: No New Focal Deficit - Problem List & Annotations (1) Vaginal delivery SNOMED Code(s): 080678134 Code(s): O80 - ENCOUNTER FOR FULL-TERM UNCOMPLICATED DELIVERY Status: Acute Current Visit: Yes - Problem List Review Problem List Initiated/Reviewed/Updated: Yes - My Orders Last 24 Hours: My Active Orders 04/18/21 14:19 Patient Status [ADT] Routine May Shower [RC] ASDIRECTED Notify Provider Vital Signs [RC] ASDIRECTED Up ad [place] [RC] ASDIRECTED Vital Signs [RC] PER UNIT ROUTINE Acetaminophen [Tylenol Extra Strength] 1,000 mg PO Q4H PRN Acetaminophen [Tylenol Extra Strength] 500 mg PO Q4H PRN Benzocaine/Menthol [Dermoplast Pain Relief 20%-0.5% [place]] 78 gm TOP ASDIRECTED PRN Docusate Sodium [Colace] 100 mg PO Q12H PRN Ibuprofen [Motrin] 400 mg PO Q4H PRN Ibuprofen [Motrin] 800 mg PO Q6H PRN Lanolin [Lansinoh HPA] See Dose Instructions TOP ASDIRECTED PRN bisacodyL [Dulcolax] 10 mg RECTAL ONETIME PRN oxyCODONE 5 mg PO Q2H PRN witch Suha [Tucks] 1 pad TOP ASDIRECTED PRN Assess Lochia [WOMSER] Per Unit Routine Assess Uterine Involution [WOMSER] Per Unit Routine Peripheral IV Discontinue [OM.PC] Routine 04/18/21 14:24 Ice Therapy [OM.PC] Per Unit Routine Perineal Care [OM.PC] Per Unit Routine Sitz Bath [OM.PC] Per Unit Routine 04/18/21 14:25 Cooling Warming Measures [RC] ASDIRECTED 04/18/21 14:28 Ready for Discharge [RC] PER UNIT ROUTINE 04/18/21 Dinner Regular Diet [DIET] 04/19/21 11:13 Ready for Discharge [RC] PER UNIT ROUTINE - Assessment Assessment:: PPD 1 status post - Plan Plan:: Doing well overall. Would like t go home later today. Discharge instructions reviewed. Follow up at [facility] 4 weeks. Discharge to home this afternoon.
[2021-04-19] MEDS: Docusate Sodium 100 MG Cap PO PRN (17:23)
--- NOTE | 2021-04-20 09:55 | PCM48HPAN ---
Post Anesthesia Note - EVALUATION WITHIN 48HRS OF ANESTHETIC Vital Signs in Normal Range: Yes Patient Participated in Evaluation: Yes Respiratory Function Stable: Yes Airway Patent: Yes Cardiovascular Function Stable: Yes Hydration Status Stable: Yes Pain Control Satisfactory: Yes Nausea and Vomiting Control Satisfactory: Yes Mental Status Recovered: Yes Vital Signs: Last Vital Signs Temp 98.1 F 04/19/21 17:14 Pulse 80 04/19/21 07:00 Resp 17 04/19/21 17:14 BP 123/85 04/19/21 17:14 Pulse Ox 97 04/19/21 17:14
== END 2021-04-19 19:00 | disposition home or self-care (01) | DRG 560 ==
LOC: MW.OB 19:54 → MW.OBCHECK 19:54 → MW.OB 20:00 → MW.OBCHECK 20:00 → OBSVTOIN 04-18 14:19 → MW.OB 04-18 18:00
PROVIDERS: ADMIT Obstetrics & Gynecology; ATTEND Obstetrics & Gynecology
PROC: 10E0XZZ Delivery of Products of Conception, External Approach (ICD-10-PCS; principal; 2021-04-18)
PROC: 10907ZC Drainage of Amniotic Fluid, Therapeutic from Products of Conception, Via Natural or Artificial Opening (ICD-10-PCS; 2021-04-18)
PROC: 0HQ9XZZ Repair Perineum Skin, External Approach (ICD-10-PCS; 2021-04-18)
PROC: 3E0P7VZ Introduction of Hormone into Female Reproductive, Via Natural or Artificial Opening (ICD-10-PCS; 2021-04-18)
DX: O13.4 Gestational [pregnancy-induced] hypertension without significant proteinuria, complicating childbirth (principal); Z3A.39 39 weeks gestation of pregnancy; Z37.0 Single live birth; O70.0 First degree perineal laceration during delivery
CPT/HCPCS: 36415; 59025; 59409; 82803; 85014; 85018; 85027; 86592; 86850; 86900; 86901; A9270-GY; J2590; J2795; J7120